=== PATIENT | female | born 1950 | race Caucasian/White ===

== ENCOUNTER 2017-05-01 06:20 | Inpatient (IN) | payer BC ==
[2017-04-26 08:25] VITALS: BMI 49.2
[2017-05-01] MEDS ORDERED: ceFAZolin IV 2 gm in Dextrose 1 GM/50 ML BAG IVPB ONE (07:28)
[2017-05-01] MEDS ORDERED: Lactated Ringer's 1,000 ML IV ONE ×3 (07:45→10:30)
[2017-05-01] MEDS ORDERED: Propofol 10 mg/ml Inj (20 ML) ONE (07:48)
[2017-05-01] MEDS ORDERED: Rocuronium 10 mg/ml (5 ml) ONE (07:48)
[2017-05-01] MEDS ORDERED: Midazolam 2 MG/2 ML VIAL ONE (07:58)
[2017-05-01] MEDS ORDERED: Neostigmine Methylsulfate 3mg/3ml Syringe IV ONE (09:08)
[2017-05-01] MEDS ORDERED: HYDROmorphone 0.5 mg/0.5 ml ISec IVP PRN (09:28)
[2017-05-01] MEDS ORDERED: Oxycodone/Acetaminophen 5/325 mg Tab PO PRN (09:29)
[2017-05-01] MEDS: HYDROmorphone 0.5 mg/0.5 ml ISec IVP PRN ×4 (09:38→14:09)
--- NOTE | 2017-05-01 09:39 | PCM.SURG1 ---
Surgeon's Initial Post Op Note - Surgeon's Notes Surgeon: Dr. Rodriguez Tool And Die Maker/Designer: Dre Bearden PGY2 Type of Anesthesia: General Endo Pre-Operative Diagnosis: Ventral incisional hernia Operative Findings: 7x7cm ventral hernia, incarcerated omentum Post-Operative Diagnosis: Same Operation Performed: Open ventral hernia repair with mesh Specimen/Specimens Removed: NA Estimated Blood Loss: EBL {In ML}: 10 Blood Products Given: N/A Drains Used: No Drains Post-Op Condition: Good Date of Surgery/Procedure: 05/01/17 Time of Surgery/Procedure: 09:39
[2017-05-01] MEDS ORDERED: Enoxaparin 30 mg Syringe SC SCH (10:00)
[2017-05-01] MEDS ORDERED: HYDROmorphone 0.5 mg/0.5 ml ISec ONE (14:10)
--- NOTE | 2017-05-01 18:09 | OP ---
PROCEDURE DATE: 05/01/2017 PREOPERATIVE DIAGNOSIS: Incisional hernia, complex. PROCEDURE CARRIED OUT: Repair of complex incisional hernia with Ventrio mesh 13.8 x 17.8 cm. SURGEON: David Rodriguez Jr., MD FIELD SPECIALIST: Dr. Bearden. ANESTHESIA: General anesthesia. ANESTHESIA ADMINISTERED BY: Dr. Haynes. INDICATIONS: A 67-year-old woman overweight with an incisional hernia at the top of previous gynecological surgery facing the umbilicus. OPERATIVE FINDINGS: Intense adhesions in the area, but no bowel was involved in this. This was all omentum that was trapped in hernia. The hernia had to be enlarged to allow for complete removal of the hernia incarcerated omentum, which was done. DESCRIPTION OF PROCEDURE: The patient was given general anesthesia and intravenous antibiotics. Standard skin prep were carried out which included washing, prepping and placement of a . Incision in a vertical fashion was made directly over the hernia, which was subsequently repaired in a transverse fashion using the mesh. After all the adhesions had been freed up and a good rim achieved in all directions, we then placed the mesh into the peritoneal cavity, sutured it to the underlying fascia, closed the fascia, and closed the skin with skin clips and nylon sutures. Blood loss for the procedure was less than 50 mL. Operation carried out was repair of complex incisional hernia with mesh. David Rodriguez Jr., MD
[2017-05-01 19:59] VITALS: RESP 20
[2017-05-01] MEDS: Enoxaparin 30 mg Syringe SC SCH (22:26)
[2017-05-02] MEDS: Sodium Chloride 0.9% 1,000 ML IV SCH ×2 (05:31→18:09)
[2017-05-02 07:43] LABS: BASO % 0.5 % (0.0-2.0); EOS # 0.2 K/uL (0.0-0.7); EOS % 1.8 % (0.0-4.0); HEMATOCRIT 32.1 % (34.0-47.0); LYMPH # 1.3 K/uL (1.0-4.3); LYMPH % 13.4 % (20.0-40.0); MEAN CELL VOLUME 92.2 fL (81.0-99.0); MEAN CORPUSCULAR HEMOGLOBIN 31.3 pg (27.0-31.0); MEAN CORPUSCULAR HGB CONC 33.9 g/dL (33.0-37.0); MEAN PLATELET VOLUME 7.2 fL (7.2-11.7); MONO # 0.9 K/uL (0.0-0.8); MONO % 9.1 % (0.0-10.0); RED CELL DISTRIBUTION WIDTH 12.2 % (11.5-14.5); WHITE BLOOD COUNT 9.4 K/uL (4.8-10.8)
[2017-05-02 07:44] LABS: BLOOD UREA NITROGEN 22 mg/dL (7-17); CALCIUM 8.7 mg/dl (8.6-10.4); CARBON DIOXIDE 28 mmol/L (22-30); CHLORIDE 100 mmol/L (98-107); GFR AFRICAN-AMERICAN > 60; GLUCOSE,RANDOM 114 mg/dL (65-105); SODIUM 136 mmol/L (132-148)
--- NOTE | 2017-05-02 08:12 | CP.PCM.DIS ---
Provider - Provider Date of Admission: 05/01/17 10:03 Attending physician: David Rodriguez Jr, MD Time Spent in preparation of Discharge (in minutes): 25 Diagnosis - Discharge Diagnosis (1) Ventral hernia Status: Resolved Hospital Course - Lab Results Lab Results: Most Recent Lab Values WBC 9.4 K/uL (4.8-10.8) 05/02/17 07:09 RBC 3.48 Mil/uL (3.80-5.20) L 05/02/17 07:09 Hgb 10.9 g/dL (11.0-16.0) L 05/02/17 07:09 Hct 32.1 % (34.0-47.0) L 05/02/17 07:09 MCV 92.2 fL (81.0-99.0) 05/02/17 07:09 MCH 31.3 pg (27.0-31.0) H 05/02/17 07:09 MCHC 33.9 g/dL (33.0-37.0) 05/02/17 07:09 RDW 12.2 % (11.5-14.5) 05/02/17 07:09 Plt Count 373 K/uL (130-400) 05/02/17 07:09 MPV 7.2 fL (7.2-11.7) 05/02/17 07:09 Neut % (Auto) 75.2 % (50.0-75.0) H 05/02/17 07:09 Lymph % (Auto) 13.4 % (20.0-40.0) L 05/02/17 07:09 [place] % (Auto) 9.1 % (0.0-10.0) 05/02/17 07:09 Eos % (Auto) 1.8 % (0.0-4.0) 05/02/17 07:09 Baso % (Auto) 0.5 % (0.0-2.0) 05/02/17 07:09 Neut # 7.1 K/uL (1.8-7.0) H 05/02/17 07:09 Lymph # 1.3 K/uL (1.0-4.3) 05/02/17 07:09 [place] # 0.9 K/uL (0.0-0.8) H 05/02/17 07:09 Eos # 0.2 K/uL (0.0-0.7) 05/02/17 07:09 Baso # 0.0 K/uL (0.0-0.2) 05/02/17 07:09 - Hospital Course Hospital Course: Patient is a 67 year old female with pmhx of htn who presented to [facility] for a ventral hernia repair with Dr. Rodriguez on 05/01/17. Surgery was performed which found a 7x7cm ventral hernia with incarcerated omentum. The ventral hernia was repaired with mesh, and patient tolerated surgery well. Patient kept overnight for pain control. Patient tolerated diet and pain was controlled. Patient able to ambulate, use incentive spirometer, and urinate. Patient to follow up with Dr. Rodriguez in one week. Discharge Exam - Head Exam Head Exam: ATRAUMATIC, NORMAL INSPECTION, NORMOCEPHALIC - Eye Exam Eye Exam: EOMI, Normal appearance - ENT Exam ENT Exam: Mucous Membranes Moist - Respiratory Exam Respiratory Exam: Clear to PA & Lateral, NORMAL BREATHING PATTERN - Cardiovascular Exam Cardiovascular Exam: +S1, +S2 - GI/Abdominal Exam GI & Abdominal Exam: Soft, Tenderness Additional comments: incision dry, clean, intact - Extremities Exam Extremities exam: full ROM, normal inspection - Neurological Exam Neurological exam: Alert, Oriented x3 - Psychiatric Exam Psychiatric exam: Normal Affect, Normal Mood - Skin Skin Exam: Intact, Normal Color, Warm Discharge Plan - Follow Up Plan Condition: GOOD Disposition: HOME/ ROUTINE
[2017-05-02] MEDS: Enoxaparin 30 mg Syringe SC SCH ×2 (09:41→22:19)
[2017-05-03] MEDS: Sodium Chloride 0.9% 1,000 ML IV SCH ×2 (00:24→11:16)
[2017-05-03 07:58] VITALS: TEMP 97.9; O2SAT 94
[2017-05-03] MEDS: Enoxaparin 30 mg Syringe SC SCH (11:01)
[2017-05-03 17:10] VITALS: BP 112/72; PULSE 100
== END 2017-05-03 14:10 | disposition home or self-care (01) | DRG 354 ==
LOC: C.SDS 06:20 → C.9S 10:03 → C.5S 17:19
PROVIDERS: ADMIT Surgery Vascular Surgery; ATTEND Surgery Vascular Surgery
PROC: 0WUF0JZ Supplement Abdominal Wall with Synthetic Substitute, Open Approach (ICD-10-PCS; principal; 2017-05-01 07:45)
DX: K43.0 Incisional hernia with obstruction, without gangrene (principal); Z68.42 Body mass index [BMI] 45.0-49.9, adult; I10 Essential (primary) hypertension; E66.3 Overweight

== ENCOUNTER 2018-07-27 12:01 | Emergency (ER) | payer BC ==
[2018-07-27 12:07] VITALS: BMI 45.6
[2018-07-27] MEDS ORDERED: Albuterol-Ipratrop 3 mg / 0.5 (3 ml) UD INH STA (12:46)
--- NOTE | 2018-07-27 12:49 | C.PDOC ---
History Of Present Illness 68 years old female with PMHx of COPD presents to ED for complaints of shortness of breath and chest tightness that began today at work. Patient states she started feeling hot while at work then opened opened the window to cool down but had no relief which prompted the ED visit. Patient also reports productive cough with green sputum that began several days ago. Denies chest pain, fever, abdominal pain, nausea, vomiting, or diarrhea. 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 denies: Fever, Chills Recent travel outside of the [place]: No Past Medical History Reviewed: Historical Data, Nursing Documentation, Vital Signs Vital Signs: Last Vital Signs Temp 98.2 F 07/27/18 12:06 Pulse 92 H 07/27/18 12:06 Resp 22 07/27/18 12:06 BP 101/62 07/27/18 12:06 Pulse Ox 98 07/27/18 12:06 - Medical History PMH: Arthritis, Asthma ("HOSPITALIZED MANY YEARS AGO"), Back Problems, Colonic Polyps, COPD, Migraine Surgical History: Coronary Stent (X1), Endoscopy - [facility] Procedures SUPPLEMENT ABDOMINAL WALL WITH SYNTH SUB, OPEN APPROACH (05/01/17) Family History: States: No Known Family Hx - Social History Hx Tobacco Use: Yes Hx Alcohol Use: No Hx Substance Use: No - Immunization History Hx Tetanus Toxoid Vaccination: No Hx Influenza Vaccination: Yes Hx Pneumococcal Vaccination: No Review Of Systems Constitutional: Negative for: Fever, Chills Cardiovascular: Positive for: Other (Chest tightness ) Respiratory: Positive for: Cough (Productive ), Shortness of Breath, Sputum (Green ) Gastrointestinal: Negative for: Nausea, Vomiting, Abdominal Pain, Diarrhea Skin: Negative for: Rash Neurological: Negative for: Weakness, Numbness Physical Exam - Physical Exam Appears: Non-toxic, No Acute Distress, Other (Morbidly obese ) Skin: Normal Color, Warm, Dry, No Rash Head: Atraumatic, Normacephalic Eye(s): bilateral: Normal Inspection, PERRL, EOMI Oral Mucosa: Moist Neck: Normal ROM, Supple Chest: Symmetrical, No Tenderness Cardiovascular: Rhythm Regular, No Murmur Respiratory: No Rales, No Rhonchi, Wheezing (Expiratory wheezing) Gastrointestinal/Abdominal: Normal Exam (Obese ), Bowel Sounds (Active ), Soft, No Tenderness Extremity: Normal ROM, No Pedal Edema Extremity: Bilateral: Atraumatic, Normal Color And Temperature, Normal ROM Pulses: Left Dorsalis Pedis: Normal, Right Dorsalis Pedis: Normal Neurological/Psych: Oriented x3, Normal Speech (Speaking in full sentences ) Gait: Steady ED Course And Treatment - Laboratory Results Result Diagrams: 07/27/18 12:35 07/27/18 12:35 Interpretation Of ECG: Normal sinus rhythm at 94 bpm. Left [place] Deviation. No Acute ST/T wave changes. O2 Sat by Pulse Oximetry: 98 (RA) Pulse Ox Interpretation: Normal Progress Note: Administered albuterol nebulizer treatment and peak flow, and solu-medrol. Ordered Blood work and EKG. Disposition Counseled Patient/Family Regarding: Studies Performed, Diagnosis, Need For Followup, Rx Given - Disposition Referrals: Stephania Duarte MD [Medical Doctor] - Disposition: HOME/ ROUTINE Disposition Time: 16:00 Condition: STABLE Additional Instructions: FOLLOW UP WITH YOUR DOCTOR IN 1-DAYS USE MEDICATIONS DIRECTED RETURN TO ER IF SYMPTOMS WORSEN Prescriptions: Albuterol HFA [Ventolin HFA 90 mcg/actuation (8 g)] 0.09 mg IH Q4 PRN #1 puff PRN Reason: Wheezing Benzonatate [Tessalon Perles] 100 mg PO BID PRN #15 sgl PRN Reason: Cough predniSONE [predniSONE Tab] 40 mg PO DAILY #8 tab Instructions: Exacerbation of COPD (DC) Forms: Minded (Lao) Print Language: YAKUT - Clinical Impression Clinical Impression: COPD exacerbation - Scribe Statement The provider has reviewed the documentation as recorded by the Bruceibhawa Ramírez All medical record entries made by the Scribe were at my direction and personally dictated by me. I have reviewed the chart and agree that the record accurately reflects my personal performance of the history, physical exam, medical decision making, and the department course for this patient. I have also personally directed, reviewed, and agree with the discharge instructions and disposition.
[2018-07-27 13:28] LABS: BASO # 0.1 K/uL (0.0-0.2); BASO % 1.4 % (0.0-2.0); EOS # 0.3 K/uL (0.0-0.7); EOS % 3.1 % (0.0-4.0); LYMPH # 1.9 K/uL (1.0-4.3); LYMPH % 21.2 % (20.0-40.0); MEAN CELL VOLUME 94.1 fL (81.0-99.0); MEAN CORPUSCULAR HEMOGLOBIN 31.9 pg (27.0-31.0); MEAN CORPUSCULAR HGB CONC 33.9 g/dL (33.0-37.0); MEAN PLATELET VOLUME 7.8 fL (7.2-11.7); MONO # 0.8 K/uL (0.0-0.8); MONO % 8.9 % (0.0-10.0); NEUT # 5.8 K/uL (1.8-7.0); NEUT % 65.4 % (50.0-75.0); RBC 4.11 Mil/uL (3.80-5.20); WHITE BLOOD COUNT 8.8 K/uL (4.8-10.8)
[2018-07-27 13:30] LABS: HEMOGLOBIN 13.1 g/dL (11.0-16.0)
[2018-07-27 13:36] LABS: INR 1.1
[2018-07-27] MEDS ORDERED: Albuterol-Ipratrop 3 mg / 0.5 (3 ml) UD ONE (13:50)
[2018-07-27 13:51] LABS: ALB/GLOB RATIO 1.2 (1.0-2.1); ALBUMIN 3.6 g/dL (3.5-5.0); ALT/SGPT 25 U/L (9-52); AST/SGOT 26 U/L (14-36); BLOOD UREA NITROGEN 21 mg/dL (7-17); CALCIUM 8.8 mg/dl (8.6-10.4); GFR NON-AFRICAN AMERICAN > 60
[2018-07-27 14:03] LABS: B-TYPE NATRIURETIC PEPTIDE 43.2 pg/mL (0-900)
[2018-07-27] MEDS ORDERED: Albuterol 0.083% Inhal Sol (2.5 mg/3 mL) UD IH STA (14:15)
--- NOTE | 2018-07-27 14:36 | RAD ---
Date of service: 07/27/2018 PROCEDURE: CHEST RADIOGRAPH, 1 VIEW HISTORY: SOB COMPARISON: 04/26/2017. FINDINGS: LUNGS: The lungs are well inflated and clear. PLEURA: No pneumothorax or pleural effusion. CARDIOVASCULAR: The heart is normal in size. No aortic atherosclerotic calcifications present. OSSEOUS STRUCTURES: Within normal limits for the patient's age. VISUALIZED UPPER ABDOMEN: Normal. OTHER FINDINGS: None. IMPRESSION: No active pulmonary disease.
[2018-07-27] MEDS ORDERED: Albuterol 0.083% Inhal Sol (2.5 mg/3 mL) UD ONE (15:22)
[2018-07-27 16:03] VITALS: BP 101/72; PULSE 93; RESP 20; TEMP 97.4; O2SAT 95
--- NOTE | 2018-07-27 16:48 | VASCLAB ---
Date of service: 07/27/2018 PROCEDURE: Right Lower Extremity Venous Duplex Exam. HISTORY: RIGHT LEG PAIN.CRAMPING PRIORS: None. TECHNIQUE: Right common femoral, femoral, popliteal and posterior tibial, peroneal and great saphenous veins were evaluated. Flow was assessed with color Doppler, compressibility, assessment of phasic flow and augmentation response. Report prepared by SHAILESH Queen, RVT FINDINGS: RIGHT: 1. Common Femoral Vein: 1.1. Compressibility - Fully compressible: Thrombus - None: Flow - Phasic: Augmentation -Normal: Reflux - None. 2. Femoral Vein: 2.1. Compressibility - Fully compressible: Thrombus - None: Flow - Phasic: Augmentation -Normal: Reflux - None. 3. Popliteal Vein: 3.1. Compressibility - Fully compressible: Thrombus - None: Flow - Phasic: Augmentation -Normal: Reflux - None. 4. Posterior Tibial Vein: 4.1. Compressibility - Fully compressible: Thrombus - None: Flow - Phasic: Augmentation -Normal: Reflux - None. 5. Peroneal Vein: 5.1. Compressibility - Fully compressible: Thrombus - None: Flow - Phasic: Augmentation -Normal: Reflux - None. 6. Great Saphenous Vein: 6.1. Compressibility - Fully compressible: Thrombus -None: Flow - Phasic: Augmentation - Normal: Reflux - None. OTHER FINDINGS: IMPRESSION: No evidence of deep or superficial vein thrombosis of the right lower extremity with excellent venous flow. Normal valve function noted of the right side. Normal venous flow noted in the left common femoral vein.
--- NOTE | 2018-07-30 09:35 | CARD ---
APPROVED REPORT Date of service: 07/27/2018 EKG Measurement Heart [id number] <Conclusion> Normal sinus rhythm Low voltage QRS Borderline ECG
== END 2018-07-27 16:38 | disposition home or self-care (01) ==
LOC: C.ER 12:01
DX: J44.1 Chronic obstructive pulmonary disease with (acute) exacerbation (principal)
CPT/HCPCS: 71045; 80053; 82550; 82553; 83880; 84484; 85025; 85610; 85730; 93971; 94640; 96374; 99284; J2930